=== PATIENT | male | born 1990 | race Caucasian/White ===

== ENCOUNTER → 2018-07-05 | Outpatient (CLI) | payer MEDICAID ==
[~2018-07-05] MED LIST: BUPR-474 PO; DEXM10CP6 PO; LURA40TA3 PO
[2018-07-05 17:43] LABS: PLATELET COUNT, AUTOMATED 299 K/uL (150-450)
== END ==
LOC: LAB 16:44
PROVIDERS: ATTEND Internal Medicine
DX: F84.5 Asperger's syndrome (principal); R13.12 Dysphagia, oropharyngeal phase; R10.13 Epigastric pain; T88.7XXA Unspecified adverse effect of drug or medicament, initial encounter
CPT/HCPCS: 36415; 82040; 82247; 82310; 82374; 82435; 82565; 82947; 84075; 84132; 84155; 84295; 84443; 84450; 84460; 84520; 85025

== ENCOUNTER → 2018-07-11 | Outpatient (CLI) | payer MEDICAID | LOC: LAB 14:44 | PROVIDERS: ATTEND Internal Medicine | DX: D58.2 Other hemoglobinopathies (principal); R71.8 Other abnormality of red blood cells | CPT/HCPCS: 36415; 81256; 82668; 82728; 83540; 83550 ==